=== PATIENT | male | born 1970 | race Two or more races ===

== ENCOUNTER 2020-04-15 11:30 | Inpatient (IN) | payer OTHER ==
[~2020-04-15] VITALS: Ht 177.8 cm; Wt 94.3 kg
[2020-04-15] MEDS ORDERED: JANUMET XR 50-1 EAC1 PO (13:32)
[2020-04-15] MEDS ORDERED: BENT PO (13:33)
[2020-04-15] MEDS ORDERED: ATORVAST PO (13:33)
[2020-04-15] MEDS ORDERED: IRON PO (13:34)
[2020-04-22] MEDS ORDERED: ATORVASTATIN CA40 MG (08:42)
[2020-04-22] MEDS ORDERED: ULTRAM50 MG (08:43)
[2020-04-22] MEDS ORDERED: IRON256 MG (08:44)
== END 2020-05-02 13:59 | disposition home or self-care (01) | DRG 330 ==
LOC: O/R 04-22 08:36 → SURG 04-22 08:36 → SURH 04-22 11:30 → SURG 04-22 18:43
PROVIDERS: ADMIT Colon & Rectal Surgery; ATTEND Colon & Rectal Surgery
PROC: 07BC4ZX Excision of Pelvis Lymphatic, Percutaneous Endoscopic Approach, Diagnostic (ICD-10-PCS; 2020-04-22)
PROC: 0DTL4ZZ Resection of Transverse Colon, Percutaneous Endoscopic Approach (ICD-10-PCS; principal; 2020-04-22 11:45)
PROC: 02HV33Z Insertion of Infusion Device into Superior Vena Cava, Percutaneous Approach (ICD-10-PCS; 2020-04-27)
PROC: 8E0ZXY6 Isolation (ICD-10-PCS; 2020-04-29)
DX: C18.4 Malignant neoplasm of transverse colon (principal); K56.7 Ileus, unspecified; J98.11 Atelectasis; D50.0 Iron deficiency anemia secondary to blood loss (chronic)

== ENCOUNTER 2020-04-18 16:17 | Outpatient (CLI) | payer OTHER ==
[~2020-04-18 16:17] MED LIST: ATORVAST PO; BENT PO; IRON PO; JANUMET XR 50-1 EAC1 PO
== END 2020-04-18 16:21 | disposition home or self-care (01) ==
LOC: LAB 16:17
PROVIDERS: ATTEND Internal Medicine Geriatric Medicine
DX: D68.8 Other specified coagulation defects (principal)

== ENCOUNTER 2021-04-26 07:21 | Day surgery (SDC) | payer OTHER ==
[~2021-04-26 07:21] MED LIST changes: +ATORVASTATIN CA40 MG; +IRON256 MG; +ULTRAM50 MG
== END 2021-04-26 15:55 | disposition home or self-care (01) ==
LOC: AMB-ENDOS 07:21
PROVIDERS: ATTEND Colon & Rectal Surgery
DX: D12.2 Benign neoplasm of ascending colon (principal); Z85.038 Personal history of other malignant neoplasm of large intestine